=== PATIENT | female | born 1990 | race Caucasian/White ===

== ENCOUNTER 2021-05-01 18:18 | Emergency (ER) | payer MEDICAID, OTHER, SELFPAY ==
[~2021-05-01] VITALS: Ht 154.9 cm; Wt 88.0 kg
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
--- NOTE | 2021-05-01 18:52 | NUR ---
report to [facility]
--- NOTE | 2021-05-01 18:54 | NUR ---
RECEIVED REPORT FROM STEVEN RAMSAY. TRANSFER OF CARE.
[2021-05-01] MEDS ORDERED: METOCLOPRAMIDE 5 MG/ML, 2ML IVPush ONE (19:00)
[2021-05-01] MEDS ORDERED: SODIUM CHLORIDE FLUSH 10ML SYR IVF ONE (19:00)
[2021-05-01] MEDS ORDERED: SODIUM CHLORIDE 0.9% 1,000ML IVBOLUS ONE (19:00)
[2021-05-01] MEDS ORDERED: METOCLOPRAMIDE 5 MG/ML, 2ML ONE (19:02)
[2021-05-01 19:12] LABS: BASOPHILS % (AUTO) 0 % (0-1); EOSINOPHILS % (AUTO) 1 % (1-7); LYMPHOCYTES % (AUTO) 14 % (22-44); MEAN CORPUSCULAR HEMOGLOBIN 31.6 pg (27.0-34.8); MEAN CORPUSCULAR HGB CONC 33.4 g/dL (32.4-35.8); MEAN PLATELET VOLUME 8.7 fL (7.4-10.4); MONOCYTES % (AUTO) 5 % (2-9); NEUTROPHILS % (AUTO) 80 % (42-75); PLATELET COUNT 371 x10^3/uL (130-400); RED CELL DISTRIBUTION WIDTH 13.8 % (9.6-15.2)
--- NOTE | 2021-05-01 19:12 | NUR ---
pt off unit in imaging.
[2021-05-01 19:26] LABS: ALBUMIN 4.1 g/dL (3.4-5.0); ANION GAP 8 mmol/L (5-15); CALCIUM 9.2 mg/dL (8.5-10.1); CHLORIDE 108 mmol/L (98-107)
[2021-05-01] MEDS ORDERED: PLEASE ENTER ALLERGIES MC SCH (19:30)
[2021-05-01 19:33] LABS: ALANINE AMINOTRANSFERASE 43 U/L (12-78); ALKALINE PHOSPHATASE 67 U/L (45-117); BILIRUBIN,TOTAL 0.6 mg/dL (0.2-1.0); CREATININE 1.03 mg/dL (0.55-1.02); TOTAL PROTEIN 8.8 g/dL (6.4-8.2)
[2021-05-01 21:11] VITALS: BP 110/75
--- NOTE | 2021-05-01 21:22 | NUR ---
Patient/Caregiver given discharge instructions and they have confirmed that they understand the instructions. Patient ambulatory with steady gait. NAD, all questions answered appropriately, denies additional needs at this time. No personal belongings left in room after discharge. PT GIVEN NON SLIP SOKS FOR SAFE DC
== END 2021-05-01 21:22 | disposition home or self-care (01) ==
LOC: ED 20:41
DX: R56.9 Unspecified convulsions (principal); R51.9 Headache, unspecified
CPT/HCPCS: 36415; 70450; 80053; 85025; 93005; 96361; 96374; 99285; J2765; J7030